=== PATIENT | male | born 1950 | race African-American/Black ===

== ENCOUNTER 2018-12-24 03:13 | Emergency (ER) | payer MEDICARE ==
[2018-12-24 03:36] LABS: #Basophils 0.1 thou/uL (0.0-0.2); #Eosinphils 0.1 thou/uL (0.0-0.7); #Lymphocytes 2.4 thou/uL (1.20-3.40); #Monocytes 0.6 thou/uL (0.11-0.59); #Neutrophils 3.3 thou/uL (1.40-6.50); %Basophils 0.9 % (0.0-1.0); %Eosinophils 2.1 % (0.0-10.0); %Lymphocytes 37.1 % (21.0-51.0); %Monocytes 9.2 % (0.0-10.0); %Neutrophils 50.6 % (42.0-75.0); Hemoglobin 13.8 g/dL (14.0-18.0); Mean Corpuscular HGB CONC 33.6 g/dL (32.0-36.0); Mean Corpuscular Hemoglobin 32.7 pg (27.0-31.0); Mean Corpuscular Volume 97.4 fL (78.0-98.0); Mean Platelet Volume 6.6 fL (7.4-10.4); Platelet Count 273 thou/uL (130-400); RBC Distribution Width 14.4 % (11.5-14.5); Red Blood Cell (RBC) Count 4.22 mill/uL (4.70-6.10); White Blood Cell (WBC) Count 6.5 thou/uL (4.8-10.8)
[2018-12-24 03:45] LABS: PTT 28.7 SEC (22.9-36.1); Prothrombin Time 13.2 SEC (12.0-14.7)
[2018-12-24 03:52] LABS: ALT (SGPT) 9 U/L (8-55); AST (SGOT) 26 U/L (5-34); Albumin 4.6 g/dL (3.4-4.8); Alcohol Less than 10 mg/dL (Less than 10); Alkaline Phosphatase 57 U/L (40-150); Anion Gap 14 mmol/L (10-20); BUN (Urea Nitrogen) 25 mg/dL (8.4-25.7); Bilirubin, Total 0.6 mg/dL (0.2-1.2); Calc. Creatinine Clearance 0 mL/min (70-130); Calcium 10.5 mg/dL (7.8-10.44); Carbon Dioxide 24 mmol/L (23-31); Chloride 102 mmol/L (98-107); Estimated GFR-MDRD 73; Globulin 4.3 g/dL (2.4-3.5); Glucose 88 mg/dL (80-115); Potassium 3.5 mmol/L (3.5-5.1); Protein, Total 8.9 g/dL (5.8-8.1); Sodium 136 mmol/L (136-145)
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
--- NOTE | 2018-12-24 09:19 | RAD ---
CHEST 1 VIEW: Date: 12/24/18 INDICATION: History of emergency examination and chest pain. COMPARISON: Prior exam dated 08/01/08. FINDINGS: Lungs are clear. Heart size is normal. No acute osseous abnormality is evident. IMPRESSION: No acute cardiopulmonary abnormality. POS: BH
[2018-12-24] MEDS ORDERED: Iopamidol 370 76% 100 ML VIAL ONE (11:59)
== END 2018-12-24 04:40 | disposition home or self-care (01) ==
LOC: ERS 03:13
DX: S21.432A Puncture wound without foreign body of left back wall of thorax with penetration into thoracic cavity, initial encounter (principal); S30.0XXA Contusion of lower back and pelvis, initial encounter; W34.00XA Accidental discharge from unspecified firearms or gun, initial encounter
CPT/HCPCS: 71045; 71260; 80053; 80307; 85025; 85610; 85730; G0390; Q9967

== ENCOUNTER 2019-01-14 23:02 | Emergency (ER) | payer MEDICARE | END 2019-01-15 00:04 | disposition home or self-care (01) | LOC: ERS 23:02 | DX: Z02.89 Encounter for other administrative examinations (principal) | CPT/HCPCS: 99283 ==

== ENCOUNTER 2020-07-30 14:26 | Emergency (ER) | payer MEDICARE ==
[2020-07-30] MEDS ORDERED: Rocuronium Bromide 10 MG/ML (10ML VIAL) ONE (14:33)
[2020-07-30] MEDS ORDERED: Calcium Chloride 1 GM/10 ML Abboject SYRINGE ONE (17:14)
[2020-07-30] MEDS ORDERED: EPINEPHrine 1 MG/10 ML Abboject SYRINGE ONE (17:14)
[2020-07-30] MEDS ORDERED: Dextrose 50% Abboject 50 ML SYRINGE ONE (17:14)
[2020-07-30] MEDS ORDERED: Sodium Bicarb 50 MEQ/50 ML Abboject 8.4% SYRINGE ONE (17:14)
[2020-07-31 09:16] LABS: SARS-CoV-2 NAA Rapid Test Not Detected (NotDetected)
== END 2020-07-30 14:59 | disposition expired ==
LOC: ERS 14:26
DX: I46.9 Cardiac arrest, cause unspecified (principal); T68.XXXA Hypothermia, initial encounter
CPT/HCPCS: 31500 ×2; 36556; 51702; 82962; 96374; 96375; 99285; U0002; 36416; J0171